=== PATIENT | male | born 1980 | race Caucasian/White ===

== ENCOUNTER 2017-05-31 19:01 | Emergency (ER) | payer OTHER ==
[~2017-05-31] VITALS: Ht 172.7 cm; Wt 110.0 kg
[2017-05-31 19:06] VITALS: Ht 172.7 cm; Wt 110.0 kg
[2017-05-31] MEDS ORDERED: SOD CHLORIDE 0.9% 1,000 ML IV STA (20:18)
[2017-05-31 20:25] VITALS: BP 109/57; PULSE 108; RESP 16; TEMP 98.3
[2017-05-31 20:50] LABS: BASOPHILS % 0.4 % (0.0-2.0); EOSINOPHILS # 0.1 10^3/ul (0.0-0.5); EOSINOPHILS % 1.2 % (0.0-7.0); HEMATOCRIT 44.4 % (42.0-52.0); HEMOGLOBIN 15.2 g/dl (14.0-18.0); LYMPHOCYTES # 2.3 10^3/ul (0.8-2.9); LYMPHOCYTES % 23.7 % (15.0-51.0); MEAN CORPUSCULAR HEMOGLOBIN 30.5 pg (29.0-33.0); MEAN CORPUSCULAR HGB CONC 34.2 g/dl (32.0-37.0); MEAN PLATELET VOLUME 9.1 fl (7.4-10.4); MONOCYTE # 0.7 10^3/ul (0.3-0.9); MONOCYTES % 7.2 % (0.0-11.0); NEUTROPHIL # 6.5 10^3/ul (1.6-7.5); NEUTROPHILS % 67.2 % (39.0-77.0); PLATELET COUNT 289 10^3/UL (140-415); RED BLOOD COUNT 4.99 10^6/ul (4.70-6.10); RED CELL DISTRIBUTION WIDTH 12.5 % (11.5-14.5); WHITE BLOOD COUNT 9.7 10^3/ul (4.8-10.8)
[2017-05-31 21:10] LABS: BARBITURATES Negative (NEGATIVE); BENZODIAZEPINES Negative (NEGATIVE); CANNABINOIDS Positive (NEGATIVE); COCAINE Negative (NEGATIVE); OPIATES Negative (NEGATIVE)
[2017-05-31 21:17] LABS: ALANINE AMINOTRANSFERASE 32 IU/L (13-69); ALBUMIN 4.2 g/dl (3.3-4.9); ALKALINE PHOSPHATASE 72 IU/L (42-121); ANION GAP 15 (8-16); ASPARTATE AMINO TRANSFERASE 25 IU/L (15-46); BLOOD UREA NITROGEN 14 mg/dl (7-20); CALCIUM 8.9 mg/dl (8.4-10.2); CARBON DIOXIDE 25 mmol/L (21-31); CHLORIDE 107 mmol/L (97-110); GLUCOSE 140 mg/dl (70-220); POTASSIUM 3.8 mmol/L (3.5-5.1); SODIUM 143 mmol/L (135-144); TOTAL PROTEIN 7.7 g/dl (6.1-8.1)
[2017-05-31 21:53] LABS: ETHANOL < 10.0 mg/dl
--- NOTE | 2017-05-31 23:34 | ERD ---
ER Documentation Chief Complaint Date/Time DATE: 05/31/17 TIME: 23:00 Chief Complaint Per family pt drank today and now less responsive HPI Patient states that he was at a family gathering this afternoon and was drinking beer and he stated that he started to try to do his homework and had a hard time focusing because he got very sleepy. The patient did not fall or have any trauma. He is not having any altered mental status he has no headache no chest pain shortness of breath abdominal pain. Note: After the workup was done to reexamine the patient reviewed his history with him he is admitting now that he ate a marijuana brownie this evening. He told me this when his parents were not around able to hear him. Patient also admits to using methamphetamines 3 days ago. He says he has used marijuana before but has not used marijuana in months ROS All systems reviewed and are negative except as per history of present illness. Allergies Allergies: Coded Allergies: No Known Allergy (Unverified , 05/31/17) PMhx/Soc History of Surgery: No Anesthesia Reaction: No Hx Neurological Disorder: No Hx Respiratory Disorders: No Hx Cardiac Disorders: No Hx Psychiatric Problems: No Hx Miscellaneous Medical Probl: No Hx Alcohol Use: Yes Hx Substance Use: Yes (MARIJUANA) Hx Tobacco Use: Yes Smoking Status: Current every day smoker FmHx Family History: No coronary disease Physical Exam Vitals Vital Signs Date Time Temp Pulse Resp B/P Pulse Ox O2 Delivery O2 Flow Rate FiO2 05/31/17 20:25 98.3 108 16 109/57 98 Room Air 05/31/17 19:06 98.3 117 16 109/57 97 Physical Exam Const: Well-developed, well-nourished, sleepy but easily arousable Head: Atraumatic, normocephalic Eyes: Injected conjunctiva, PERRLA, EOMI, normal sclera, no nystagmus] ENT: Normal External Ears, Nose and Mouth, moist mucus membranes. Neck: Full range of motion. No meningismus, no lymphadenopathy. Resp: Clear to auscultation bilaterally, no wheezing, rhonchi, rales Cardio: Regular rate and rhythm, no murmurs, S1 S2 present Abd: Soft, non tender x 4, non distended. Normal bowel sounds, no guarding or rebound, no pulsitile abdominal masses or bruits Skin: No petechiae or rashes, no ecchymosis , no maculopapular rash Back: No midline or flank tenderness Ext: No cyanosis, or edema, FROM x 4, normal inspection, neurovascularly intact x 4 Neur: Awake and alert, STR 5/5 x 4, sensation intact x 4, no focal findings, cerebellum intact Psych: Normal Mood and Affect Result Diagram: 05/31/17202405/31/172024 Results 24 hrs Laboratory Tests Test 05/31/17 20:25 White Blood Count 9.710^3/ul Red Blood Count 4.9910^6/ul Hemoglobin 15.2g/dl Hematocrit 44.4% Mean Corpuscular Volume 89.0fl Mean Corpuscular Hemoglobin 30.5pg Mean Corpuscular Hemoglobin Concent 34.2g/dl Red Cell Distribution Width 12.5% Platelet Count 48954^3/UL Mean Platelet Volume 9.1fl Neutrophils % 67.2% Lymphocytes % 23.7% Monocytes % 7.2% Eosinophils % 1.2% Basophils % 0.4% Nucleated Red Blood Cells % 0.0/100WBC Neutrophils # 6.510^3/ul Lymphocytes # 2.310^3/ul Monocytes # 0.710^3/ul Eosinophils # 0.110^3/ul Basophils # 0.010^3/ul Nucleated Red Blood Cells # 0.010^3/ul Sodium Level 143mmol/L Potassium Level 3.8mmol/L Chloride Level 107mmol/L Carbon Dioxide Level 25mmol/L Anion Gap 15 Blood Urea Nitrogen 14mg/dl Creatinine 0.90mg/dl Glucose Level 140mg/dl Calcium Level 8.9mg/dl Total Bilirubin 0.0mg/dl Direct Bilirubin 0.00mg/dl Indirect Bilirubin 0.0mg/dl Aspartate Amino Transf (AST/SGOT) 25IU/L Alanine Aminotransferase (ALT/SGPT) 32IU/L Alkaline Phosphatase 72IU/L Total Protein 7.7g/dl Albumin 4.2g/dl Globulin 3.50g/dl Albumin/Globulin Ratio 1.20 Urine Opiates Screen Negative Urine Barbiturates Negative Urine Amphetamines Screen POSITIVE Urine Benzodiazepines Screen Negative Urine Cocaine Screen Negative Urine Cannabinoids Positive Ethyl Alcohol Level < 10.0mg/dl Current Medications Medications (Trade) Dose Ordered Sig/[place] Route PRN Reason Start Time Stop Time Status Last Admin Dose Admin Sodium Chloride (NS) 1,000 ml @ 1,000 mls/hr Q1H STAT IV 05/31/17 20:18 05/31/17 21:17 DC Procedures/MDM Patient's labs are unremarkable. Has no alcohol. Has positive amphetamines and marijuana. Which is consistent with the above history. Patient is now awake, and can ambulate. We will discharge home with substance abuse Departure Diagnosis: Primary Impression: Substance abuse Condition: Stable Patient Instructions: Substance abuse MISTY SIMPSON DO May 31, 2017 23:34
== END 2017-05-31 23:28 | disposition home or self-care (01) ==
LOC: E/R 19:01
DX: F15.10 Other stimulant abuse, uncomplicated (principal); F12.10 Cannabis abuse, uncomplicated; F17.210 Nicotine dependence, cigarettes, uncomplicated
CPT/HCPCS: 36415; 80053; 80306; 80307; 85025; 99284; J7030

== ENCOUNTER 2017-09-08 09:51 | Emergency (ER) | payer OTHER ==
[~2017-09-08] VITALS: Ht 157.5 cm; Wt 106.5 kg
[2017-09-08 09:52] VITALS: Ht 157.5 cm; Wt 106.5 kg
--- NOTE | 2017-09-08 10:52 | ERD ---
ER Documentation Chief Complaint Chief Complaint cough x 1 mos, itchy throat, tearful eyes HPI 37-year-old male who presents emergency department for cough that is on and off for about a month. Stated that he developed productive cough last week. Complains of red eye and teary eye for the past 6 days. Denies headache, dizziness, eye injury, foreign body sensation in his right eye, head injury, neck pain, throat pain, difficulty swallowing, shoulder pain, chest pain, difficulty breathing when lying flat, abdominal pain, nausea, vomiting, constipation, diarrhea, loss of bowel bladder control, urinary symptoms, recent long travel, recent travel, recent exposure to any illness, recent antibiotic use in the last 3 months, fever, chills. ROS All systems reviewed and are negative except as per history of present illness. Medications Home Meds Active Scripts Erythromycin Base (Erythromycin) 1 Gm Oint...g., 1 GM OP Q6, #1 Prov:BAHMANSALENARASHEED 09/08/17 Prednisone* (Prednisone*) 20 Mg Tab, 40 MG PO DAILY for 5 Days, TAB Prov:BAHMANSALENARASHEED 09/08/17 Loratadine* (Claritin*) 10 Mg Capsule, 10 MG PO DAILY for 30 Days, CAP Prov:RASHEED BARRIOS 09/08/17 Albuterol Sulfate* (Proair HFA*) 8.5 Gm Hfa.aer.ad, 2 PUFF INH Q4, #1 INHALER Prov:RASHEED BARRIOS 09/08/17 Azithromycin* (Zithromax*) 250 Mg Tablet, 250 MG PO .ZPACK DIRECTED, #6 TAB TAKE 500 MG (2 TABS) THE FIRST DAY THEN 250 MG (1 TAB) DAYS 2-5 Prov:RASHEED BARRIOS 09/08/17 Allergies Allergies: Coded Allergies: No Known Allergy (Unverified , 09/08/17) PMhx/Soc Medical and Surgical Hx: pt denies Medical Hx, pt denies Surgical Hx History of Surgery: No Anesthesia Reaction: No Hx Neurological Disorder: No Hx Respiratory Disorders: No Hx Cardiac Disorders: No Hx Psychiatric Problems: No Hx Miscellaneous Medical Probl: No Hx Alcohol Use: Yes Hx Substance Use: Yes (MARIJUANA) Hx Tobacco Use: Yes Smoking Status: Current every day smoker Physical Exam Vitals Vital Signs Date Time Temp Pulse Resp B/P Pulse Ox O2 Delivery O2 Flow Rate FiO2 09/08/17 09:52 98.2 79 18 138/79 99 Physical Exam Const: Well-appearing. Not in acute respiratory distress. Head: Atraumatic Eyes: There is no visible field loss. Has conjunctival injection/redness bilaterally. Pupils are 3 mm and are reactive to light bilaterally. Extraocular movement of his eyes is within normal limits. No pain in eye movement. ENT: Normal External Ears, Nose and Mouth. Throat: Uvula is in midline and not displaced. Tonsils are +1 bilaterally without redness and without exudates. Tolerating secretions. No difficulty swallowing. Patent airway. Speaks full and clear sentences. Neck: Full range of motion..~ No meningismus. Resp: Clear to auscultation bilaterally. Cardio: Regular rate and rhythm, no murmurs Abd: Soft, non tender, non distended. Normal bowel sounds Skin: No petechiae or rashes Back: No midline or flank tenderness Ext: No cyanosis, or edema Neur: Awake and alert. Romberg test is negative. No neurological deficits. Psych: Normal Mood and Affect Procedures/MDM Chest x-ray: No acute disease. ED visual acuity: Reviewed. Differential diagnosis: I have low suspicion for sepsis, severe or serious bacterial infection, pneumonia, glaucoma, foreign body to her eyes, sinusitis, strep throat due to my physical exam, patient is well-appearing, vital signs are unremarkable. Final diagnosis: Conjunctivitis, bronchitis Prescription: Erythromycin ophthalmic ointment. Azithromycin. Pro-air. Loratadine. Prednisone. Tessalon. Follow-up with PCP in the next 3-4 days. Come back here in the emergency department for any new symptoms or any worsening of symptoms. All questions and concerns are answered. Patient verbalized understanding and agreed with the plan of care. Hemodynamically stable on discharge. Departure Diagnosis: Primary Impression: Conjunctivitis Additional Impression: Bronchitis Condition: Stable Additional Instructions: Follow-up with PCP in the next 3-4 days. Come back here in the emergency department for any new symptoms or any worsening of symptoms. All questions and concerns are answered. Patient verbalized understanding and agreed with the plan of care. RASHEED BARRIOS Sep 08, 2017 10:52
--- NOTE | 2017-09-08 11:34 | RADRPT ---
PROCEDURE: XR Chest. CLINICAL INDICATION: Cough TECHNIQUE: Single AP view of the chest was obtained COMPARISON: None FINDINGS: The heart, lungs and osseous structures are unremarkable. IMPRESSION: No acute disease. [facility] Lamar Odell Physician Date Time Electronically viewed and signed by Lamar Odell Physician on 09/08/2017 11:34 HI/
[2017-09-08] MEDS ORDERED: AZIT250T94 PO (11:43)
[2017-09-08] MEDS ORDERED: ALBU8.5H3 INH (11:43)
[2017-09-08] MEDS ORDERED: LORA10CA PO (11:44)
[2017-09-08] MEDS ORDERED: PRED20TA PO (11:44)
[2017-09-08] MEDS ORDERED: ERYT1OIN6 OP (11:47)
== END 2017-09-08 11:55 | disposition home or self-care (01) ==
LOC: FTE 09:51
DX: H10.9 Unspecified conjunctivitis (principal); J20.9 Acute bronchitis, unspecified; F17.210 Nicotine dependence, cigarettes, uncomplicated
CPT/HCPCS: 71020; Z7502

== ENCOUNTER 2018-01-23 00:27 | Emergency (ER) | END 2018-01-23 02:06 | disposition home or self-care (01) ==